=== PATIENT | female | born 1935 | race American Indian/Alaskan Native ===

== ENCOUNTER 2018-10-11 19:49 | Emergency (ER) | payer MEDICARE ==
--- NOTE | 2018-10-11 22:01 | Cat Scan Report ---
CT HEAD WITHOUT CONTRAST INDICATION / CLINICAL INFORMATION: MAIN: fall from wheelchair, head injury, AMS. TECHNIQUE: All CT scans at this location are performed using CT dose reduction for ALARA by means of automated e xposure control. COMPARISON: Head CT 11/09/2016 LIMITATIONS: Patient motion artifact degrades image quality on this examination. FINDINGS: HEMORRHAGE: No evidence of intracranial hemorrhage or extra-axial fluid collection. EXTRA-AXIAL SPACES: Cortical sulci and sylvian fissures are enlarged reflecting a degree of parenchym al volume loss which is within normal limits for the patient's age. Basilar cisterns have an unremark able appearance. VENTRICULAR SYSTEM: The third and lateral ventricles are enlarged out of proportion to the cortical s ulci. This probably reflects the presence of central greater than cortical atrophy. CEREBRAL PARENCHYMA: Periventricular and deep white matter lucency is observed. This is probably seco ndary to microvascular ischemic change. There is no indication of recent infarction. No areas of ence phalomalacia are identified. MIDLINE SHIFT OR HERNIATION: There is no mass effect. CEREBELLUM / BRAINSTEM: Brainstem and cerebellum have an unremarkable appearance. INTRACRANIAL VESSELS:Calcified atherosclerotic plaque is present along the course of the cavernous se gments of both internal carotid arteries. Similar findings are seen at the distal vertebral arteries. ORBITS: visualized portions of the orbits have an unremarkable appearance. SOFT TISSUES of HEAD: No significant abnormality. CALVARIUM: Evaluation of bone windows reveals no abnormalities. PARANASAL SINUSES / MASTOID AIR CELLS: Paranasal sinuses are free from inflammatory mucosal disease. Mastoid air cells are normally pneumatized. ADDITIONAL FINDINGS: None. IMPRESSION: 1. Age-related involutional changes of parenchymal volume loss and advanced microvascular ischemic ch larry. 2. Limited study secondary to patient motion artifact. Signer Name: William Guevara MD Signed: 10/11/2018 9:56 PM Workstation Name: [id number]
--- NOTE | 2018-10-11 22:01 | Cat Scan Report ---
CT cervical spine wo con INDICATION: MAIN: fall FROM WHEELCHAIR , AMS. TECHNIQUE: All CT scans at this location are performed using the following dose modulation technique: Automated exposure control. COMPARISON: None available. FINDINGS: No acute fracture is seen in the cervical spine. There is multilevel moderate to advanced discogenic degenerative disease. There is no prevertebral soft tissue swelling. No spinal stenosis is seen. There is a cystic lesion in the left parotid. This was described on prior CT from 05/02/2016 (images no t available). Soft tissues are otherwise unremarkable. Included lung apices are clear. IMPRESSION: 1. No acute fracture is seen in the cervical spine. 2. Diffuse cervical spondylosis. 3. Partially cystic left parotid mass. This was seen on prior CT neck from 05/02/2016 (images not avail able). Signer Name: Ludwig Smith MD Signed: 10/11/2018 9:57 PM Workstation Name: [id number]
--- NOTE | 2018-10-11 23:03 | XRay Report ---
AP PELVIS INDICATION: post fall pelvis pain. COMPARISON: No relevant prior imaging study available. FINDINGS: No acute, displaced fracture or dislocation is seen. 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 There are a dvanced degenerative changes at the SI joints and included lower lumbar spine as well. No focal soft tissue swelling is seen. IMPRESSION: 1. No acute findings. Signer Name: Ludwig Smith MD Signed: 10/11/2018 10:59 PM Workstation Name: [id number]
--- NOTE | 2018-10-11 23:04 | XRay Report ---
CHEST 1 VIEW INDICATION: post fall chest pain. COMPARISON: None. FINDINGS: Support devices: Cardiac leads project in expected position. Heart: Normal. Lungs/Pleura: No acute pulmonary or pleural findings. Advanced degenerative changes are noted at the shoulders, this is incompletely evaluated on this exam . IMPRESSION: 1. No acute findings. Signer Name: Ludwig Smith MD Signed: 10/11/2018 10:59 PM Workstation Name: [id number]
--- NOTE | 2018-10-11 23:17 | Emergency Department Report ---
HPI - General Chief Complaint: Head Injury Time Seen by Provider: 10/11/18 21:07 - HPI HPI: 83-year-old female presents to the emergency department via EMS from her senior care facility at [facility] after she had a witnessed fall from her wheelchair. Apparently the patient was reaching for something when she fell forwards and hit the right side of her head. There was no loss of consciousness. She has a past medical history of vertigo, hypertension, hyperlipidemia, diabetes, hypothyroidism and dementia. The patient is awake and conversive but is a poor historian secondary to her dementia. ED Past Medical Hx - Past Medical History Previous Medical History?: Yes Hx Hypertension: Yes Hx Congestive Heart Failure: Yes Hx Diabetes: Yes (oral meds) Hx GERD: Yes Hx Arthritis: Yes Hx Dementia: Yes Hx HIV: No Additional medical history: hypothyroidism - Surgical History Past Surgical History?: Yes Hx Pacemaker: Yes Hx Internal Defibrillator: Yes Hx Appendectomy: Yes - Social History Smoking Status: Never Smoker Substance Use Type: None - Medications Home Medications: Home Medications Medication Instructions Recorded Confirmed Last Taken Type Loratadine [Claritin] 10 mg PO DAILY 05/08/13 11/09/16 01/05/15 21:00 History 10 mg Acetaminophen [Acetaminophen TAB] 650 mg PO Q4H PRN #30 tablet 01/12/15 11/09/16 Unknown Rx Insulin NPH, Human [NovoLIN N] 100 units SQ AC 11/09/16 11/09/16 Unknown History Loperamide HCl [Imodium A-D] 2 mg PO DAILY PRN 11/09/16 11/09/16 Unknown History Melatonin [Melatonin 3MG TAB] 3 mg PO QHS 11/09/16 11/09/16 Unknown History guaiFENesin DM [Robitussin Dm] 10 ml PO Q6HR 11/09/16 11/09/16 Unknown History Aspirin [Aspirin BABY CHEW TAB] 1 tab PO DAILY #30 tab.chew 11/13/16 Unknown Rx AtorvaSTATin [Lipitor] 10 mg PO QHS #30 tablet 11/13/16 Unknown Rx Carvedilol [Coreg] 12.5 mg PO BID #60 tablet 11/13/16 Unknown Rx Donepezil [Aricept] 5 mg PO QHS #30 tablet 11/13/16 Unknown Rx Levothyroxine [Synthroid] 75 mcg PO DAILY@0600 #30 tablet 11/13/16 Unknown Rx Meclizine [Antivert] 25 mg PO Q8H PRN #45 tablet 11/13/16 Unknown Rx Metformin HCl [Fortamet ER] 1,000 mg PO BID #60 tab.er.24 11/13/16 Unknown Rx Polyvinyl Alcohol [Artificial 1 drop OU Q6HR #1 drops 11/13/16 Unknown Rx Tears] Valsartan [Diovan] 320 mg PO QDAY #30 tablet 11/13/16 Unknown Rx ED Review of Systems ROS: Stated complaint: FALL/HEAD PAIN Other details as noted in HPI Comment: Unobtainable due to pts medical conditions Neurological: headache Physical Exam - Physical Exam Vital Signs: Vital Signs 10/11/18 21:11 Temperature 98.7 F Pulse Rate 66 Respiratory 16 Rate Blood Pressure 181/77 [Right] O2 Sat by Pulse 97 Oximetry Physical Exam: GENERAL: The patient is well-developed well-nourished. HENT: Normocephalic. Atraumatic. Patient has moist mucous membranes. EYES: Extraocular motions are intact. NECK: Supple. Trachea is midline. CHEST/LUNGS: Clear to auscultation. There is no respiratory distress noted. HEART/CARDIOVASCULAR: Regular. There is no tachycardia. There is no murmur. ABDOMEN: Abdomen is soft, nontender. Patient has normal bowel sounds. There is no abdominal distention. SKIN: Skin is warm and dry. NEURO: The patient is awake, alert and cooperative. The patient has normal speech. MUSCULOSKELETAL: There is no tenderness or deformity. There is no evidence of acute injury. BACK: No midline lumbar or thoracic tenderness to palpation. ED Course Vital Signs 10/11/18 21:11 Temperature 98.7 F Pulse Rate 66 Respiratory 16 Rate Blood Pressure 181/77 [Right] O2 Sat by Pulse 97 Oximetry ED Medical Decision Making - Radiology Data Radiology results: report reviewed, image reviewed interpreted by me: Chest x-ray does not show any acute process. There are no pleural effusions, obvious pneumonia and there is no pneumothorax. X-ray of the pelvis does not show any fracture, dislocation or any acute process. CT HEAD WITHOUT CONTRAST INDICATION / CLINICAL INFORMATION: MAIN: fall from wheelchair, head injury, AMS. TECHNIQUE: All CT scans at this location are performed using CT dose reduction for ALARA by means of automated exposure control. COMPARISON: Head CT 11/09/2016 LIMITATIONS: Patient motion artifact degrades image quality on this examination. FINDINGS: HEMORRHAGE: No evidence of intracranial hemorrhage or extra-axial fluid collection. EXTRA-AXIAL SPACES: Cortical sulci and sylvian fissures are enlarged reflecting a degree of parenchymal volume loss which is within normal limits for the patient's age. Basilar cisterns have an unremarkable appearance. VENTRICULAR SYSTEM: The third and lateral ventricles are enlarged out of proportion to the cortical sulci. This probably reflects the presence of central greater than cortical atrophy. CEREBRAL PARENCHYMA: Periventricular and deep white matter lucency is observed. This is probably secondary to microvascular ischemic change. There is no indication of recent infarction. No areas of encephalomalacia are identified. MIDLINE SHIFT OR HERNIATION: There is no mass effect. CEREBELLUM / BRAINSTEM: Brainstem and cerebellum have an unremarkable appearance. INTRACRANIAL VESSELS:Calcified atherosclerotic plaque is present along the course of the cavernous segments of both internal carotid arteries. Similar findings are seen at the distal vertebral arteries. ORBITS: visualized portions of the orbits have an unremarkable appearance. SOFT TISSUES of HEAD: No significant abnormality. CALVARIUM: Evaluation of bone windows reveals no abnormalities. PARANASAL SINUSES / MASTOID AIR CELLS: Paranasal sinuses are free from inflammatory mucosal disease. Mastoid air cells are normally pneumatized. ADDITIONAL FINDINGS: None. IMPRESSION: 1. Age-related involutional changes of parenchymal volume loss and advanced microvascular ischemic change. 2. Limited study secondary to patient motion artifact. CT cervical spine wo con INDICATION: MAIN: fall FROM WHEELCHAIR , AMS. TECHNIQUE: All CT scans at this location are performed using the following dose modulation technique: Automated exposure control. COMPARISON: None available. FINDINGS: No acute fracture is seen in the cervical spine. There is multilevel moderate to advanced discogenic degenerative disease. There is no prevertebral s oft tissue swelling. No spinal stenosis is seen. There is a cystic lesion in the left parotid. This was described on prior CT from 05/02/2016 (images not available). Soft tissues are otherwise unremarkable. Included lung apices are clear. IMPRESSION: 1. No acute fracture is seen in the cervical spine. 2. Diffuse cervical spondylosis. 3. Partially cystic left parotid mass. This was seen on prior CT neck from 05/02/2016 (images not available). - Medical Decision Making This patient was sent in from her senior care after she had a witnessed fall out of her wheelchair. She had a CT scan of the head without contrast that does not show any bleed, shift, mass, ischemia, or any other acute process. CT of cervical spine also does not show any fracture, subluxation, or any other acute process. Chest x-ray does not show any rib fracture, pneumothorax or any acute process. X-ray of the pelvis also does not show any pelvic or hip fractures, dislocations or any acute processes. Vital signs were stable throughout her ED course. The patient will be discharged back to the senior care facility with instructions to follow-up with primary care and to return to the ER with any worsening of her symptoms or any acute distress. - Differential Diagnosis head contusion, subarachnoid, skull fracture Critical Care Time: No Critical care attestation.: If time is entered above; I have spent that time in minutes in the direct care of this critically ill patient, excluding procedure time. ED Disposition Clinical Impression: Fall Qualifiers: Encounter type: initial encounter Qualified Code(s): W19.XXXA - Unspecified fall, initial encounter Head contusion Qualifiers: Encounter type: initial encounter Contusion of head detail: scalp Qualified Code(s): S00.03XA - Contusion of scalp, initial encounter Minor head injury without loss of consciousness Qualifiers: Encounter type: initial encounter Qualified Code(s): S09.90XA - Unspecified injury of head, initial encounter Hypertension Qualifiers: Hypertension type: essential hypertension Qualified Code(s): I10 - Essential (primary) hypertension Disposition: DC-01 TO HOME OR SELFCARE Is pt being admited?: No Condition: Stable Instructions: Minor Head Injury (ED), Hypertension (ED) Additional Instructions: Please follow up with the primary care physician in the next few days. Return to the emergency Department with any worsening of your symptoms or any acute distress. Make sure to take your blood pressure medications. Keep a blood pressure log. Try to stay away from foods that are high in salt and caffeinated products. Referrals: SHALA LOVE MD [Staff Physician] - 2-3 Days [facility] [Outside] - 2-3 Days Time of Disposition: 23:18
[2018-10-12 03:16] VITALS: BP 136/70
== END 2018-10-12 03:26 | disposition home or self-care (01) ==
LOC: ED 19:49
DX: S00.03XA Contusion of scalp, initial encounter (principal); I11.0 Hypertensive heart disease with heart failure; I50.9 Heart failure, unspecified; E11.9 Type 2 diabetes mellitus without complications; K21.9 Gastro-esophageal reflux disease without esophagitis; M19.90 Unspecified osteoarthritis, unspecified site; F03.90 Unspecified dementia, unspecified severity, without behavioral disturbance, psychotic disturbance, mood disturbance, and anxiety; E78.5 Hyperlipidemia, unspecified; E03.9 Hypothyroidism, unspecified; Z79.899 Other long term (current) drug therapy; Z95.5 Presence of coronary angioplasty implant and graft; Z95.810 Presence of automatic (implantable) cardiac defibrillator; Z90.89 Acquired absence of other organs; Z79.4 Long term (current) use of insulin; Z88.8 Allergy status to other drugs, medicaments and biological substances; Z88.0 Allergy status to penicillin; V00.811A Fall from moving wheelchair (powered), initial encounter; Y93.89 Activity, other specified; Y92.89 Other specified places as the place of occurrence of the external cause; Y99.8 Other external cause status
CPT/HCPCS: 70450; 71045; 72125; 72170